=== PATIENT | male | born 1980 | race Caucasian/White ===

== ENCOUNTER → 2017-03-23 | Outpatient (CLI) | payer BC ==
[2017-03-23 12:53] LABS: SGOT/AST 31 IU/L (3-35); SGPT/ALT 48 U/L (12-78)
== END | disposition home or self-care (01) ==
LOC: LAB 12:01
PROVIDERS: Family Medicine
DX: R03.0 Elevated blood-pressure reading, without diagnosis of hypertension (principal); R79.89 Other specified abnormal findings of blood chemistry